=== PATIENT | male | born 1970 | race Asian ===

== ENCOUNTER 2020-06-19 14:20 | Emergency (ER) | payer OTHER ==
[~2020-06-19] VITALS: Ht 177.8 cm; Wt 83.9 kg
[2020-06-19 14:20] VITALS: BP 156/89; TEMP 97.9
[2020-06-19 14:49] LABS: PLATELET COUNT 226 K/uL (142-355)
[2020-06-19 15:01] LABS: POTASSIUM 4.5 mmol/L (3.6-5.2)
[2020-06-19] MEDS ORDERED: FENT75DI TD (18:18)
[2020-06-19] MEDS ORDERED: GABA300C2 PO (18:19)
[2020-06-19] MEDS ORDERED: ROBAXIN-750750 MG PEG (18:23)
[2020-06-19] MEDS ORDERED: OMEPRAZOLE40 MG PEG (18:24)
[2020-06-19] MEDS ORDERED: OXYC5TAB53 PEG (18:25)
[2020-06-19] MEDS ORDERED: POLYETHYLE17 GM/SCO1 PEG (18:27)
[2020-06-19] MEDS ORDERED: PROPRANOLO20 MG/5 ML PEG (18:29)
[2020-06-19] MEDS ORDERED: ROPINIROLE1 MG PEG (18:30)
[2020-06-19] MEDS ORDERED: SENNA-LAX8.6 MG PEG (18:32)
[2020-06-19] MEDS ORDERED: SEROQUEL200 MG PEG (18:33)
[2020-06-19] MEDS ORDERED: TAMS0.4C PEG (18:34)
[2020-06-19] MEDS ORDERED: VALPROIC A250 MG/5 M PEG (18:35)
[2020-06-19] MEDS ORDERED: TYLENOL325 MG PEG (18:37)
[2020-06-19] MEDS ORDERED: AMLODIPINE BESYLATE PEG (18:38)
[2020-06-19] MEDS ORDERED: ASPIRIN 81 LOW81 MG PEG (18:38)
[2020-06-19] MEDS ORDERED: LORA2INJ21 INJ (18:40)
[2020-06-19] MEDS ORDERED: DUCODYL5 MG PEG (18:41)
[2020-06-19] MEDS ORDERED: CARBAMAZEPIN200 M1 PEG (18:43)
[2020-06-19] MEDS ORDERED: DOXA2TAB PEG ×2 (18:44→18:46)
[2020-06-19] MEDS ORDERED: CLON1TAB18 PEG (18:47)
[2020-06-19] MEDS ORDERED: DOCU100C10 PEG (18:50)
[2020-06-28] MEDS ORDERED: OLAN2.5T2 PO (09:30)
[2020-06-28] MEDS ORDERED: OLAN10INJ IM (09:30)
[2020-06-28] MEDS ORDERED: VALPROIC ACID10 ML PEG (09:30)
[2020-06-28] MEDS ORDERED: CLON1TAB18 PEG (09:31)
[2020-06-28] MEDS ORDERED: DULO30CA PEG (09:31)
[2020-06-28] MEDS ORDERED: BUSP5TAB2 PEG (09:32)
[2020-06-28] MEDS ORDERED: AMLODIPINE BESYLATE PEG (09:32)
[2020-06-28] MEDS ORDERED: POLYETHYLE17 GM/SCO1 PEG (09:33)
[2020-07-12] MEDS ORDERED: OLAN10INJ IM (13:37)
[2020-07-12] MEDS ORDERED: VALPROIC ACID10 ML PEG ×2 (13:37)
[2020-07-12] MEDS ORDERED: TIZA4TAB5 PO (13:37)
[2020-07-12] MEDS ORDERED: DULO30CA PO (13:38)
[2020-07-12] MEDS ORDERED: FLUOXETINE20 MG PO (13:38)
[2020-07-12] MEDS ORDERED: GABA300C2 PO ×2 (13:38)
[2020-07-12] MEDS ORDERED: CLONAZEP ODT0.25 MG PO (13:39)
[2020-07-12] MEDS ORDERED: BUSP5TAB2 PO (13:40)
[2020-07-25] MEDS ORDERED: AMOX875T8 PO (09:13)
[2020-07-25] MEDS ORDERED: ZINC220C4 PEG (09:13)
[2020-07-25] MEDS ORDERED: DULO30CA PO (09:14)
[2020-07-25] MEDS ORDERED: ARIPIPRAZOLE10 MG PO (09:14)
[2020-07-25] MEDS ORDERED: FLUOXETINE20 MG PO (09:14)
[2020-07-25] MEDS ORDERED: INDERAL 10MG TAB PO (09:16)
[2020-07-25] MEDS ORDERED: OLAN10INJ IM (09:17)
== END 2020-06-19 16:41 | disposition still patient (30) ==
LOC: ED 14:20
PROVIDERS: Emergency Medicine Emergency Medical Services
DX: F32.89 Other specified depressive episodes (principal); Z11.59 Encounter for screening for other viral diseases; Z04.6 Encounter for general psychiatric examination, requested by authority
CPT/HCPCS: 80053; 85027; 87635; 93005; 99283; J2060; U0003

== ENCOUNTER 2020-07-05 09:33 | Emergency (ER) | payer OTHER ==
[~2020-07-05] VITALS: Ht 180.3 cm; Wt 79.8 kg
[~2020-07-05 09:33] MED LIST: AMLODIPINE BESYLATE PEG; ASPIRIN 81 LOW81 MG PEG; BUSP5TAB2 PEG; CARBAMAZEPIN200 M1 PEG; CLON1TAB18 PEG; DOCU100C10 PEG; DOXA2TAB PEG; DUCODYL5 MG PEG; DULO30CA PEG; FENT75DI TD; GABA300C2 PO; LORA2INJ21 INJ; OLAN10INJ IM; OLAN2.5T2 PO; OMEPRAZOLE40 MG PEG; OXYC5TAB53 PEG; POLYETHYLE17 GM/SCO1 PEG; PROPRANOLO20 MG/5 ML PEG; ROBAXIN-750750 MG PEG; ROPINIROLE1 MG PEG; SENNA-LAX8.6 MG PEG; SEROQUEL200 MG PEG; TAMS0.4C PEG; TYLENOL325 MG PEG; VALPROIC A250 MG/5 M PEG; VALPROIC ACID10 ML PEG
[2020-07-05 09:37] VITALS: TEMP 98.8
[2020-07-05 10:04] LABS: PLATELET COUNT 204 K/uL (142-355)
[2020-07-05 10:11] LABS: POTASSIUM 3.9 mmol/L (3.6-5.2)
[2020-07-05 12:19] VITALS: BP 125/97
[2020-07-05] MEDS ORDERED: AMLODIPINE BESYLATE PO (13:40)
[2020-07-05] MEDS ORDERED: LORA2INJ21 INJ (13:43)
[2020-07-05] MEDS ORDERED: ROBAXIN-750750 MG PEG (13:53)
[2020-07-12] MEDS ORDERED: VALPROIC ACID10 ML PEG ×2 (13:37)
[2020-07-12] MEDS ORDERED: TIZA4TAB5 PO (13:37)
[2020-07-12] MEDS ORDERED: OLAN10INJ IM (13:37)
[2020-07-12] MEDS ORDERED: FLUOXETINE20 MG PO (13:38)
[2020-07-12] MEDS ORDERED: DULO30CA PO (13:38)
[2020-07-12] MEDS ORDERED: GABA300C2 PO ×2 (13:38)
[2020-07-12] MEDS ORDERED: CLONAZEP ODT0.25 MG PO (13:39)
[2020-07-12] MEDS ORDERED: BUSP5TAB2 PO (13:40)
[2020-07-25] MEDS ORDERED: AMOX875T8 PO (09:13)
[2020-07-25] MEDS ORDERED: ZINC220C4 PEG (09:13)
[2020-07-25] MEDS ORDERED: ARIPIPRAZOLE10 MG PO (09:14)
[2020-07-25] MEDS ORDERED: DULO30CA PO (09:14)
[2020-07-25] MEDS ORDERED: FLUOXETINE20 MG PO (09:14)
[2020-07-25] MEDS ORDERED: INDERAL 10MG TAB PO (09:16)
[2020-07-25] MEDS ORDERED: OLAN10INJ IM (09:17)
== END 2020-07-05 12:22 | disposition other institution (70) ==
LOC: ED 09:33
PROVIDERS: Emergency Medicine
DX: F22 Delusional disorders (principal); I67.89 Other cerebrovascular disease; Z11.59 Encounter for screening for other viral diseases; Z04.6 Encounter for general psychiatric examination, requested by authority
CPT/HCPCS: 80053; 85027; 87635; 93005; 99283; U0003

== ENCOUNTER 2020-07-18 13:11 | Emergency (ER) | payer OTHER ==
[~2020-07-18] VITALS: Ht 180.3 cm; Wt 800.6 kg
[~2020-07-18 13:11] MED LIST changes: +AMLODIPINE BESYLATE PO; +BUSP5TAB2 PO; +CLONAZEP ODT0.25 MG PO; +DULO30CA PO; +FLUOXETINE20 MG PO; +TIZA4TAB5 PO
[2020-07-18 13:18] VITALS: BP 135/100; TEMP 97.8
[2020-07-18 13:53] LABS: PLATELET COUNT 233 K/uL (142-355); POTASSIUM 5.4 mmol/L (3.6-5.2)
[2020-07-18] MEDS ORDERED: DRIZALMA SPRINK30 MG PEG (17:54)
[2020-07-18] MEDS ORDERED: CLON0.5T36 PEG (17:58)
[2020-07-25] MEDS ORDERED: ZINC220C4 PEG (09:13)
[2020-07-25] MEDS ORDERED: AMOX875T8 PO (09:13)
[2020-07-25] MEDS ORDERED: FLUOXETINE20 MG PO (09:14)
[2020-07-25] MEDS ORDERED: ARIPIPRAZOLE10 MG PO (09:14)
[2020-07-25] MEDS ORDERED: DULO30CA PO (09:14)
[2020-07-25] MEDS ORDERED: INDERAL 10MG TAB PO (09:16)
[2020-07-25] MEDS ORDERED: OLAN10INJ IM (09:17)
== END 2020-07-18 15:49 | disposition other institution (70) ==
LOC: ED 13:11
PROVIDERS: Family Medicine
DX: R46.89 Other symptoms and signs involving appearance and behavior (principal); R45.1 Restlessness and agitation; Z11.59 Encounter for screening for other viral diseases; Z04.6 Encounter for general psychiatric examination, requested by authority
CPT/HCPCS: 80053; 85027; 87635; 93005; 99283; 99285; U0003

== ENCOUNTER 2020-07-20 21:24 | Emergency (ER) | payer OTHER ==
[~2020-07-20] VITALS: Ht 180.3 cm; Wt 80.3 kg
[~2020-07-20 21:24] MED LIST changes: +CLON0.5T36 PEG; +DRIZALMA SPRINK30 MG PEG
[2020-07-20 22:15] VITALS: BP 138/98
[2020-07-25] MEDS ORDERED: ZINC220C4 PEG (09:13)
[2020-07-25] MEDS ORDERED: AMOX875T8 PO (09:13)
[2020-07-25] MEDS ORDERED: ARIPIPRAZOLE10 MG PO (09:14)
[2020-07-25] MEDS ORDERED: FLUOXETINE20 MG PO (09:14)
[2020-07-25] MEDS ORDERED: DULO30CA PO (09:14)
[2020-07-25] MEDS ORDERED: INDERAL 10MG TAB PO (09:16)
[2020-07-25] MEDS ORDERED: OLAN10INJ IM (09:17)
== END 2020-07-20 22:15 | disposition other institution (70) ==
LOC: ED 21:24
DX: Z43.1 Encounter for attention to gastrostomy (principal)
CPT/HCPCS: 99282; Q9963